=== PATIENT | female | born 1945 | race Caucasian/White ===

== ENCOUNTER 2018-08-05 06:15 | Day surgery (SDC) | payer MEDICARE, OTHER, SELFPAY ==
[2018-08-02 12:35] VITALS: BMI 26.9
[2018-08-05] VITALS (16 sets, daily range): BP systolic 120–148; BP diastolic 69–86; PULSE 67–83; RESP 12–18; TEMP 35.7–36.7; O2SAT 92–99; BMI 25.7
--- NOTE | 2018-08-05 | PATH_ITS ---
[facility] Accession Number: [id number] . 01 Material submitted: . UTERUS AND BILATERAL TUBES AND OVARIES . 02 Diagnosis: Uterus, Bilateral Fallopian Tubes and Ovaries, Laparoscopic Assisted Vaginal Hysterectomy with Bilateral Salpingo-oophorectomy (Weight 64 grams): Cervix with focal parakeratosis, consistent with prolapse. Inflamed endocervix with no diagnostic abnormality; negative for glandular dysplasia and malignancy. Basalis endometrium with cystic atrophy; negative for glandular hyperplasia, cytologic atypia, and malignancy. Myometrium with Monckeberg's calcification of blood vessels and otherwise no diagnostic abnormality. Uterine serosa with nonspecific adhesions. Right ovary with a benign serous cyst (0.5 cm in greatest dimension). Calcified nodule, stated to represent left ovary; no definite left ovarian tissue identified. Right fallopian tube with benign paratubal cysts (1-2 mm in greatest dimension). Fibromuscular tissue with calcifications and fibrous adhesions, stated to represent left fallopian tube; no definite left tubal structure is identified. MRV/08/08/2018 . 02 Electronically signed: . Cynthia Lopez MD, Pathologist NPI- [id number] . 01 Gross description: . Received in formalin, labeled with the patient's name and uterus and bilateral tubes and ovaries, is a piriform uterus with attached right adnexa and detached left adnexa weighing 64 g. The uterus measures 2.5 cm anterior to posterior, 4.7 cm cornu to cornu, and 7.2 cm fundus to cervix. The serosa is partially covered by adhesions. The ectocervix has a 4.5 x 3.7 cm surface diameter and a 0.8 cm slit-like os. The ectocervical mucosa is king-white and wrinkled. The 1.7 cm long, 0.5 cm wide endocervical canal is covered with king-white mucosa. The 4.5 cm long, 0.9 cm wide endometrial cavity is covered with red-brown endometrium measuring 0.1 cm in thickness. No endometrial polyps are present. No subserosal or intramural nodules are identified. The attached right ovary measures 2.5 x 1.7 x 1.2 cm and has a key-king, wrinkled external surface. The cut surface is king-white. The attached right fallopian tube measures 4.5 cm in length by 0.6 cm in diameter and is grossly unremarkable. The detached left ovary measures 1.9 x 1.5 x 1.1 cm and has a nodular, key-king external surface. The cut surface is king-yellow and calcified. The left fallopian tube is attached to the left ovary and measures 3.2 cm in length by 0.6 cm in diameter and is partially disrupted. Service Observer sections are submitted as follows: A1 - anterior cervix; A2 - posterior cervix; A3 - anterior endomyometrium; A4 - posterior endomyometrium; A5 - right ovary; A6 - right fallopian tube cross-sections and fimbriated end; A7 - left ovary; A8 - left fallopian tube and fimbriated end. (VICKI:[id number]) /FRR . 02 Pathologist provided ICD-10: N81.4 . 02 CPT . 907946 Performed at: [facility] [address] [id number] MD Velasquez Baeza MD Phone: [phone] Performed at: [facility] [address] [place] [id number] MD Tevin Vasquez MD Phone: [phone]
[2018-08-05] MEDS: LACTATED RINGERS 1,000 ML 42 ML IV ×2 (06:50→10:26)
--- NOTE | 2018-08-05 07:54 | PM.PREOP ---
Pre-operative Note Interval Note Pre-op Check: Yes History & Physical Reviewed by Physician Changes: No
[2018-08-05] MEDS: CEFAZOLIN 2 GM/100 ML FROZ.PIGGY IV (08:10)
--- NOTE | 2018-08-05 08:46 | SUR.OPER ---
Lithotomy on padded OR bed. Maybee Pad Positioner under torso. Head on pillow, arms padded and tucked at sides. Legs secured in padded yellow fins stirrups.
[2018-08-05] MEDS: BUPIVACAINE 0.25% W/ EPI VIAL 50 ML INJ (08:56)
[2018-08-05] MEDS: BUPIVACAINE 0.5% W/ EPI (PF) VIAL 30 ML INJ (09:02)
[2018-08-05] MEDS: LACTATED RINGERS 1,000 ML 100 ML IV ×3 (10:30→20:49)
--- NOTE | 2018-08-05 11:49 | PC.NURSE ---
Pt to floor following lap assisted vag hysterectomy and repair of bladder suspension. Denies pain at this time apart from a feeling of heaviness in her abdomen. Mild nausea - plan to discuss medication for this. Ordaz draining small amt of clear yellow urine. O2 sats = 90 - 96%. Given IS and instructed on use to maintain O2 levels above 92%. Scds in place. Taking ice chips for now. Does not feel like eating for lunch. Pt is alert and oriented, softly spoken and serious demeanour with appropriate answers to questions.
[2018-08-05] MEDS: ONDANSETRON 4 MG/2 ML INJ IV (12:05)
[2018-08-05] MEDS: ACETAMINOPHEN 325 MG TABLET 650 MG PO ×3 (14:06→21:49)
--- NOTE | 2018-08-05 15:22 | PC.NURSE ---
Pt attempted to sit on chair but felt too unwell at this time to do so. Returned to bed for now. Given tylenol earlier for feeling of pressure in abdomen and now reports feeling improved.Taking fluids without problems. More awake now and interactive with visitors and staff.
--- NOTE | 2018-08-05 16:42 | PC.NURSE ---
Pt resting quietly in bed with eyes closed at beginning of shift. No signs of distress or discomfort.
--- NOTE | 2018-08-05 17:35 | PC.NURSE ---
Pt moves self upright in bed for evening meal. States nausea resolved and able to take soup, nannette kuldeep and toast without difficulty. Admits to vaginal discomfort and lower abdominal discomfort. States unable to tolerate percocet which is ordered and reviewed emar and is too soon for tylenol. Pt requests vicodin and states Dr. Ferguson has informed pt will stop by after clinic hours. Will discuss pain management at that time. Ordaz to gravity with clear, yellow urine. Pt reports most comfortable lying flat in bed without head elevation.
[2018-08-05] MEDS: HYDROCODONE/ACET 5/325 TABLET 1 TAB PO ×2 (18:09→21:48)
[2018-08-05] MEDS: DOCUSATE 250 MG CAPSULE PO (19:57)
--- NOTE | 2018-08-05 20:00 | PC.NURSE ---
Pt awake and resting quietly in bed. Refuses out of bed at this time, but positioned onto left side with pillows to support. Daughter is present and encouraging/supportive. Pt engaged in I.S. use with encouragement.
--- NOTE | 2018-08-05 23:13 | PC.NURSE ---
Pt reports pain well managed (/) with tylenol and vicodin as per emar. Taking oral fluids well. Carlos with 250 cc's clear yellow urine this shift. Anticipates removal of packing and carlos catheter in a.m. as per Dr. Ferguson.
[2018-08-06 00:25] VITALS: BP 136/71; PULSE 72; RESP 14; TEMP 36.4; O2SAT 96
[2018-08-06] MEDS: HYDROCODONE/ACET 5/325 TABLET 1 TAB PO (03:20)
[2018-08-06] MEDS: ACETAMINOPHEN 325 MG TABLET 650 MG PO (03:21)
[2018-08-06 03:26] VITALS: BP 145/77; PULSE 73; RESP 18; TEMP 36.8; O2SAT 96
[2018-08-06 06:28] LABS: Add Manual Diff / Slide Review NO; Basophils Percent Auto 0.3 % (0-2); Eosinophils Percent Auto 1.1 % (2-4); Hematocrit 35.9 % (36-46); Hemoglobin 12.2 g/dL (12.0-16.0); Lymphocytes Percent Auto 15.5 % (25-40); Mean Corpuscular HGB Conc 33.9 % (30-36); Mean Corpuscular Hemoglobin 30.8 PG (26-34); Mean Corpuscular Volume 90.8 fL (80-100); Monocytes Percent Auto 7.9 % (3-14); Neutrophils Absolute Auto 7600 /uL (3000-5900); Neutrophils Percent Auto 75.2 % (50-75); Platelet Count 200 X10^3/uL (150-400); Red Blood Cell Count 3.96 X10^6/uL (4.0-5.2); Red Cell Distribution Width 13.7 % (11.6-14.8); White Blood Cell Count 10.2 X10^3/uL (4.5-11.0)
[2018-08-06] MEDS: LACTATED RINGERS 1,000 ML 100 ML IV (06:57)
[2018-08-06 07:00] VITALS: BP 149/77; PULSE 70; RESP 16; TEMP 37.3; O2SAT 96
[2018-08-06] MEDS: DOCUSATE 250 MG CAPSULE PO (08:49)
--- NOTE | 2018-08-06 11:12 | PC.NURSE ---
Pt has showered and is dressed and ready for discharge. Had 100cc void and it was clear and light yellow. Pt's daughter is here to drive her. Pt denies pain. Reviewed discharge orders with Pt and notified Pt that she will be called by [facility] for her follow up appointment. Pt and family member deny further questions. Reminded Pt to drink lots of fluids and attempt to void every 2 hours to empty bladder. Pt out via w/c by [employer] with family and all belongings.
--- NOTE | 2018-08-06 12:51 | CM.DANOTE ---
Patient is a 73 year old female who was admitted on 08/05/18 for Surgical Procedure. Pt has M[employer] and [employer] for insurance and her PCP is Dr. Andrea. EMR was reviewed. Per MD, pt is medically stable to d/c home today with no identified barriers to discharge. Per RN, pt was independent in room and no concerns noted at this time. SW went by pt's room to complete bedside assessment and family and staff were taking the pt downstairs to family's transport and pt stated she had no concerns with discharging home today with family assist. Plan: Patient discharged home today via family POV and no SW needs at this time. JOSAFAT Gant Discharge Planning/Care Management CM Discharge Assessment Start: 08/06/18 12:50 Freq: Status: Active Protocol: Document 08/06/18 12:50 BF (Rec: 08/06/18 12:51 BF [id number]) Discharge Planning Assessment Assigned Other Sales Support Worker ICT CUSTOMER SUPPORT OFFICER Advance Directives? Yes: Dated 01/07/16 Advance Directives on File Yes History Provided By Patient Medical Record Has Patient been admitted in last 30 No days? Prior Living Arrangements House Household Members none Type of transporation used prior to Drives own vehicle admit Independent with ADL's Yes Is patient alert and oriented? Yes Needs Assistance With Home Chores / Shopping Barriers to Discharge No Discharge Plan Home Transportation Arrangement Family to provide transport home Referrals Initiated None needed Whiteboard Updated in Patient Room with No name and ext. # of Other Sales Support Worker Review Status In Process Please Provide Date Initial DC 08/06/18 Assessment Was Performed Next Review Type Continued Stay Review
--- NOTE | 2018-08-08 05:38 | PM.GYNOP.1 ---
Operative Date/Time/Diagnoses Date of procedure: 08/05/18 Time of procedure: 11:08 Pre-op diagnosis: Uterine prolapse Cystocele Rectocele Post-op diagnosis: same Procedure: Procedures Operation Date: 08/05/18 07:45 Actual Procedures Side Surgeon p Laparoscopic Assisted Vag Hysterectomy w/Bilat Salpingo-Oophorectomy Ana Laura Ferguson MD s Colporrhaphy Anterior/Posterior Colporrhaphy Ana Laura Ferguson MD Indications: Symptomatic uterine prolapse, cystocele, and rectocele Surgeon: Ana Laura Ferguson Multigrapher: Sameer Zuluaga Anesthesia Type: General Operative Notes Findings: Third-degree uterine prolapse Third-degree cystocele and rectocele Pelvic adhesions Closure Type: primary Specimen(s): left tube & ovary, right tube & ovary and uterus Applied: catheter Estimated blood loss (mL): 75 Blood products transfused: none Procedure in detail: The patient was taken to the operating room where she was placed in the dorsal supine position. After adequate general endotracheal anesthesia was achieved, she was placed in the dorsal lithotomy position, and prepped and draped in the usual sterile fashion. A bivalve speculum was placed into the vagina, and a single-tooth tenaculum was placed on the anterior lip of the cervix. The cervical os was sequentially dilated until the ZUMI uterine manipulator could pass easily into the endometrial cavity. The single-tooth tenaculum was removed from the anterior lip of the cervix, and the bivalve speculum was removed from the vagina. Attention was then turned to the abdomen where 6 mL of half percent Marcaine with epinephrine were injected in the umbilical fold. A 5 mm incision was made. The varies needle was placed into the peritoneal cavity, and its placement confirmed by aspiration and drop test. The abdominal cavity was insufflated with 4 L of CO2. The varies needle was removed, and a 5 mm trocar was placed without difficulty. Initial inspection of the pelvis revealed the findings noted above. 2 other incisions were made midway between the pubic symphysis and umbilicus 4 cm lateral to the midline. These were 5 mm incisions. Two 5 mm trochars were placed under direct visualization. The right tube and ovary were grasped with an atraumatic grasper. The infundibulopelvic ligament on the right side was cauterized and cut with plasma kinetic. The round ligament and broad ligament were cauterized and cut. This was continued to the level of the uterine arteries. This was repeated on the patient's left side. The insurance are removed from the abdomen. Attention was then turned to the vagina where the ZUMI uterine manipulator was removed from the uterus. The cervix was grasped with a 4 tooth tenaculum. 10 mL of quarter percent Marcaine with epinephrine were injected circumferentially around the cervix. The cervix was circumscribed. The bladder and rectum were dissected off the lower uterine segment and cervix with an open moistened Ray-Sonia. The peritoneum was entered sharply with the Metzenbaum scissors anteriorly and a [place] placed. The peritoneum was entered posteriorly with the Metzenbaum scissors and the long weighted speculum was placed into the posterior cul-de-sac. The uterosacral cardinal ligament complexes were clamped, transected, and suture ligated with 0 Vicryl. These were attached to hemostats. The uterine arteries were clamped, transected, and suture ligated with 0 Vicryl. The uterus was handed off for specimen with the tubes and ovaries. The peritoneum was closed with a pursestring suture with 2-0 Vicryl. The vaginal cuff was closed with 0 Vicryl with a series of simple interrupted sutures. The tagged sutures were cut. 2 Allis clamps were placed at the apex of the cystocele. 6 mL of half percent Marcaine with epinephrine were injected and an incision was made with a #10 blade between the 2 Allis clamps. Wide Allis clamps were placed on the midline of the cystocele approximately 5. The mucosa was undermined using the Metzenbaum scissors and the mucosa incised in the midline moving the wide Allis clamps to the edges of the mucosa. The mucosa was dissected off the underlying fascia using an open moistened Ray-Sonia and a #10 blade. The fascia was reapproximated with 0 Vicryl with a series of horizontal mattress sutures. The excess vaginal mucosa was excised. The mucosa was closed using simple interrupted sutures with 2-0 Vicryl including the underlying fascia to close the space. The weighted speculum was removed from the vagina. Allis clamps were placed at the mucocutaneous junction at the introitus. 6 mL of half percent Marcaine with epinephrine were injected. An incision was made with a #10 blade between the 2 Allis clamps, and a triangular piece of skin and underlying subcutaneous tissue was removed. Allis clamps were placed in the midline of the rectocele. 10 mL of half percent Marcaine with epinephrine were injected submucosally. The mucosa was undermined using the Metzenbaum scissors and the mucosa incised in the midline, moving the wide Allis clamps to the mucosal edges. The underlying fascia was dissected off of th mucosa using an open moistened Ray-Sonia and a #10 blade. The fascia was reapproximated using 0 Vicryl with a series of horizontal mattress sutures. The excess vaginal mucosa was excised. The mucosa was closed using a series of simple interrupted sutures with 2-0 Vicryl including the underlying fascia to close the space. On the perineum 0 Vicryl was used to reapproximate the levator muscle. The subcutaneous layer was closed with 2-0 Vicryl. The skin was closed with 3-0 chromic in a subcuticular fashion. Hemostasis was achieved. A Betadine moistened vaginal pack was placed into the vagina. A rectal exam was done and there were no sutures palpable in the rectum. The urine was clear. Sponge, lap, and instrument counts were correct x-2. The patient tolerated the procedure well, was taken to PACU in stable condition. Complications: none Post-operative Condition: stable Disposition: PACU Plan for aftercare: Acute care after recovery
--- NOTE | 2018-08-08 05:42 | PM.DS.1 ---
History of Present Illness Date Patient Seen: 08/06/18 Time Patient Seen: 08:30 Chief complaint: *OPB* [facility] BSO AND A&P [id number] Narrative: Patient is a 73-year-old postop day # 1 status post LAVH/BSO/anterior and posterior repair. Catheter was removed at 6 o'clock this morning. Pain is well controlled. Discharge Providers Discharge provider: Ana Laura Ferguson MD Summary Discharge Diagnosis: Uterine prolapse, cystocele, rectocele Status post LAVH/BSO/anterior and posterior repair Hospital Course: The patient presented on 08/05/2018 for scheduled LAVH/BSO/anterior and posterior repair. She underwent these procedures without difficulty. The catheter was removed on postop day # 1. She was able to void with low postvoid residuals. Her pain was well controlled. She was able to ambulate and tolerated a diet. Status at Discharge Functional status at discharge: independent ambulation Overall status at discharge: patient is progressing back to baseline Time Spent with Patient Less than 30 minutes Exam Vital Signs (past 8 hours): Oxygen Delivery Method Room Air Oxygen Flow Rate 0.5 Narrative Exam Narrative: Generally: A well-developed, well-nourished elderly female, no acute distress Lungs: Clear to auscultation bilaterally Cardiovascular: Regular rate and rhythm Abdomen: Soft with good bowel sounds Incisions: Clean dry and intact with op site Extremities: Negative Homans Objective Labs Result Diagrams: 08/06/18 06:14 Discharge Plan Discharge Plan Patient Disposition: Home Discharge comment: Call with fever, chills, redness or drainage around incisions or bleeding vaginally more than spotty to light No heavy lifting Ibuprofen/Tylenol for pain Stool softners for 6 weeks Discharge Med Rec/Prescriptions Prescriptions: No Action hydrochlorothiazide 12.5 MG capsule 12.5 mg PO QDAY Qty: 0 RF: 0 gabapentin 100 MG capsule 100 mg PO PRN PRN (Reason: Restless Leg(S)) Qty: 0 RF: 0 cholecalciferol (vitamin D3) [Vitamin D3] 2,000 UNIT capsule 2,000 unit PO DAILY Qty: 0 RF: 0 estradiol [Vagifem] 10 mcg tablet 10 mcg VAG .COMPLEX Qty: 30 RF: 6 atorvastatin 20 mg tablet 20 mg PO DAILY RF: 0 Follow up/Referrals: Ana Laura Ferguson MD [Physician] - 2 Weeks Discharge Orders: Discharge (Order); Ordered 08/06/18 Ordered By: Ana Laura Ferguson Provider Discharge Instructions Diet: Diet as Tolerated Activity: No heavy lifting Skin/Wound/Dressing Care Report to your healthcare provider any signs of infection, such as:: chills, fever, increased pain and unusual drainage Dressing: Remove outer plastic dressings and guaze after first shower Visit Report/Discharge Packet Instructions: DI for Hysterectomy Stand Alone Forms: Surgery Discharge Discharge Data Attending Provider: Ana Laura Ferguson Discharges patient from system. Discharge Date/Time: 08/06/18 11:15 Quality VTE Deep Vein Thrombosis/Pulmonary Embolism Present on Admission: No
--- NOTE | 2018-08-08 05:45 | P.DS_ITS ---
History of Present Illness Date Patient Seen: 08/06/18 Time Patient Seen: 08:30 Chief complaint: *OPB* [facility] BSO AND A&P [id number] Narrative: Patient is a 73-year-old postop day # 1 status post LAVH/BSO/ anterior and posterior repair. Catheter was removed at 6 o'clock this morning. Pain is well controlled. Discharge Providers Discharge provider: Ana Laura Ferguson MD Summary Discharge Diagnosis: Uterine prolapse, cystocele, rectocele Status post LAVH/BSO/anterior and posterior repair Hospital Course: The patient presented on 08/05/2018 for scheduled LAVH/BSO/ anterior and posterior repair. She underwent these procedures without difficulty. The catheter was removed on postop day # 1. She was able to void with low postvoid residuals. Her pain was well controlled. She was able to ambulate and tolerated a diet. Status at Discharge Functional status at discharge: independent ambulation Overall status at discharge: patient is progressing back to baseline Time Spent with Patient Less than 30 minutes Exam Vital Signs (past 8 hours): Oxygen Delivery Method Room Air Oxygen Flow Rate 0.5 Narrative Exam Narrative: Generally: A well-developed, well-nourished elderly female, no acute distress Lungs: Clear to auscultation bilaterally Cardiovascular: Regular rate and rhythm Abdomen: Soft with good bowel sounds Incisions: Clean dry and intact with op site Extremities: Negative Homans Objective Labs Result Diagrams: 08/06/18 06:14 Discharge Plan Discharge Plan Patient Disposition: Home Discharge comment: Call with fever, chills, redness or drainage around incisions or bleeding vaginally more than spotty to light No heavy lifting Ibuprofen/Tylenol for pain Stool softners for 6 weeks Discharge Med Rec/Prescriptions Prescriptions: No Action hydrochlorothiazide 12.5 MG capsule 12.5 mg PO QDAY Qty: 0 RF: 0 gabapentin 100 MG capsule 100 mg PO PRN PRN (Reason: Restless Leg(S)) Qty: 0 RF: 0 cholecalciferol (vitamin D3) [Vitamin D3] 2,000 UNIT capsule 2,000 unit PO DAILY Qty: 0 RF: 0 estradiol [Vagifem] 10 mcg tablet 10 mcg VAG .COMPLEX Qty: 30 RF: 6 atorvastatin 20 mg tablet 20 mg PO DAILY RF: 0 Follow up/Referrals: Ana Laura Ferguson MD [Physician] - 2 Weeks Discharge Orders: Discharge (Order); Ordered 08/06/18 Ordered By: Ana Laura Ferguson Provider Discharge Instructions Diet: Diet as Tolerated Activity: No heavy lifting Skin/Wound/Dressing Care Report to your healthcare provider any signs of infection, such as:: chills, fever, increased pain and unusual drainage Dressing: Remove outer plastic dressings and guaze after first shower Visit Report/Discharge Packet Instructions: DI for Hysterectomy Stand Alone Forms: Surgery Discharge Discharge Data Attending Provider: Ana Laura Ferguson Discharges patient from system. Discharge Date/Time: 08/06/18 11:15 Quality VTE Deep Vein Thrombosis/Pulmonary Embolism Present on Admission: No
== END 2018-08-06 11:15 | disposition home or self-care (01) ==
LOC: OR 06:20 → AC 06:32
PROVIDERS: Visit Provider Obstetrics & Gynecology
PROC: 0UT9FZZ Resection of Uterus, Via Natural or Artificial Opening With Percutaneous Endoscopic Assistance (ICD-10-PCS; CPT 58552; principal; 2018-08-05 07:45)
PROC: (CPT 58552; 2018-08-05 07:45)
DX: N81.3 Complete uterovaginal prolapse (principal); N81.6 Rectocele; I10 Essential (primary) hypertension
CPT/HCPCS: 58552; 57260; 36415; 85025; 88305; J0690; J1100; J2250; J2405; J2704; J3010

== ENCOUNTER → 2019-04-28 15:03 | Outpatient (CLI) | payer MEDICARE, OTHER, SELFPAY ==
[2018-08-05 11:29] VITALS: BMI 25.7
--- NOTE | 2019-04-28 | DI.RAD.S_ITS ---
PROCEDURE: XR KNEE RT 3V INDICATIONS: Pain in right knee TECHNIQUE: 3 views of the knee were acquired. COMPARISON: None. FINDINGS: Bones: No fractures or dislocations but there is a lucency at the lateral border of the patella anterolaterally, measuring up to 8 x 9 mm, extending to the superficial cortical surface seen on one view only (patellar sunrise view) potentially representing a focus of infection or neoplasm. No suspicious bony lesions. Soft tissues: No joint effusion. No suspicious soft tissue calcifications. IMPRESSION: No effusion found, no trauma seen but there is a lucency as discussed above measuring up to 8 x 9 mm involving the anterolateral patellar border, potentially evidence of infection or neoplasm. No comparison is available for review in this area. Please correlate for whether any trauma has occurred recently in that region. Depending on the clinical status followup by MR scanning with contrast may become necessary. Dictated by: Liborio Bass M.D. on 04/28/2019 at 15:45 Approved by: Liborio Bass M.D. on 04/28/2019 at 15:47
== END ==
PROVIDERS: PCP Internal Medicine; Visit Provider Internal Medicine
DX: M25.561 Pain in right knee (principal)
CPT/HCPCS: 73562

== ENCOUNTER → 2019-05-12 09:25 | Outpatient (CLI) | payer MEDICARE, OTHER, SELFPAY ==
[2018-08-05 11:29] VITALS: BMI 25.7
--- NOTE | 2019-05-12 | DI.MRI.S_ITS ---
PROCEDURE: MR KNEE RT WO/W CON INDICATIONS: RIGHT KNEE PAIN TECHNIQUE: Noncontrast sagittal PD fast spin echo and T2 fast spin echo with fat saturation, sagittal 3-D FLASH with fat saturation; coronal T1 spin echo and PD fast spin echo with fat saturation, and axial T1 spin echo and PD fast spin echo with fat saturation through the knee. Post-contrast axial, coronal, and sagittal T1 spin echo with fat saturation through the knee. COMPARISON: [facility], CR, XR KNEE RT 3V, 04/28/2019, 15:18. FINDINGS: Image quality: Excellent. Menisci: The medial and lateral menisci demonstrate normal morphology and internal signal. The meniscal root ligaments appear intact. Cruciate ligaments: The anterior and posterior cruciate ligaments appear intact. Medial structures: The medial collateral ligament appears intact. The posterior oblique ligament, semimembranosus tendon insertions, and oblique popliteal liagment, and meniscocapsular junction appear intact. Visualized portions of the pes anserinus tendons appear normal. No abnormal bursal fluid. Lateral structures: The lateral collateral ligament, long and short heads of the biceps femoris tendon appear intact. The popliteus tendon appears normal; the popliteofibular ligament appears intact. The posterosuperior and anteroinferior popliteomeniscal fascicles appear intact. The arcuate and fabellofibular ligaments appear intact, around the lateral inferior geniculate artery. Iliotibial band appears normal. Anterior structures: The quadriceps and patellar tendons appear intact. Patellar alignment is normal. No femoral trochlear dysplasia or ventral trochlear prominence. No edema in the infrapatellar fat pad. There is nonspecific prepatellar soft tissue swelling. Bones and cartilage: There is a longitudinal oriented the near hypointensity with associated bone marrow edema and enhancement in inferior aspect of patella along the coronal plane, consistent with a nondisplaced fracture. No masses is identified to correlate with the radiolucency seen on x-ray. The cartilage of the medial and lateral femorotibial compartments, as well as the patellofemoral compartment, appears normal in thickness. There is a 9 mm nodule in the posterior medial femoral condyle, demonstrating hypointense T1 and hyperintense signal with internal septation, most likely a cyst. Joint space: There is small knee joint effusion. A small Gray's cyst is present. Normal appearing synovial plicae are incidentally noted. No suspicious soft tissue enhancement. IMPRESSION: 1. Nondisplaced fracture of the patella with associated marrow edema and enhancement. Although the orientation of the fracture is unusual, no mass lesion is present. Recommend cartilage with clinical history of trauma. Followup radiograph of the knee is recommended. 2. Small knee joint effusion. 3. Small Gray cyst. 4. Nonspecific prepatellar soft tissue swelling, likely secondary to contusion. 5. There is a 9 mm cyst in the posterior aspect of the medial femoral condyle. Dictated by: Savana Mclain M.D. on 05/12/2019 at 10:37 Approved by: Savana Mclain M.D. on 05/12/2019 at 18:46
== END ==
PROVIDERS: PCP Internal Medicine; Visit Provider Internal Medicine
DX: M25.561 Pain in right knee (principal); S82.024A Nondisplaced longitudinal fracture of right patella, initial encounter for closed fracture; M25.461 Effusion, right knee; M71.21 Synovial cyst of popliteal space [Baker], right knee; M79.89 Other specified soft tissue disorders; M85.661 Other cyst of bone, right lower leg
CPT/HCPCS: 73723; A9579

== ENCOUNTER → 2020-07-11 09:31 | Outpatient (CLI) | payer MEDICARE, OTHER, SELFPAY ==
[2018-08-05 11:29] VITALS: BMI 25.7
--- NOTE | 2020-07-11 09:36 | DI.RAD.S_ITS ---
PROCEDURE: XR CHEST 2V INDICATIONS: Short of breath TECHNIQUE: 2 views of the chest were acquired. COMPARISON: None. FINDINGS: Surgical changes and devices: None. Lungs and pleura: Lungs are clear. No pleural effusions or pneumothorax. Mediastinum: The cardiac contours are within normal limits. The aorta demonstrates calcification and tortuosity. Bones and chest wall: Age-appropriate bony degenerative changes are seen. Mild dextroconvex scoliotic curvature is seen. No suspicious bony abnormalities. Soft tissues appear unremarkable. IMPRESSION: No acute cardiopulmonary process is seen. If there is clinical concern for a developing pulmonary process, a short-term followup chest series (with PA and lateral views, performed in deep inspiration) is suggested for further evaluation. Dictated by: William Elizondo M.D. on 07/11/2020 at 11:06 Approved by: William Elizondo M.D. on 07/11/2020 at 11:07
[2020-07-11 16:50] LABS: Add Manual Diff / Slide Review NO; Basophils Absolute Auto 0 /uL (0-100); Basophils Percent Auto 0.7 % (0-2); Eosinophils Absolute Auto 200 /uL (0-450); Eosinophils Percent Auto 3.3 % (2-4); Hematocrit 37.2 % (36-46); Hemoglobin 12.4 g/dL (12.0-16.0); Lymphocytes Absolute Auto 1300 /uL (1100-4500); Lymphocytes Percent Auto 23.4 % (25-40); Mean Corpuscular HGB Conc 33.3 % (30-36); Mean Corpuscular Hemoglobin 29.9 PG (26-34); Mean Corpuscular Volume 89.6 fL (80-100); Monocytes Absolute Auto 400 /uL (0-900); Monocytes Percent Auto 7.6 % (3-14); Neutrophils Absolute Auto 3500 /uL (1500-7000); Platelet Count 272 X10^3/uL (150-400); Red Blood Cell Count 4.16 X10^6/uL (4.0-5.2); Red Cell Distribution Width 13.6 % (11.6-14.8); White Blood Cell Count 5.4 X10^3/uL (4.5-11.0)
[2020-07-11 17:44] LABS: Vitamin B12 626 pg/mL (239-931)
== END ==
PROVIDERS: PCP Internal Medicine; Referring Provider Internal Medicine; Visit Provider Internal Medicine
DX: R06.02 Shortness of breath (principal)
CPT/HCPCS: 71046; 82607; 85025

== ENCOUNTER → 2020-07-12 06:37 | Outpatient (CLI) | payer MEDICARE, OTHER, SELFPAY ==
[2018-08-05 11:29] VITALS: BMI 25.7
--- NOTE | 2020-07-12 | DI.ECHO.S_ITS ---
[facility] +---------+ : : [address] : [place] [address] : : : : [id number] : : : : Phone: [phone] : [phone]---------+ Echocardiogram Report + + :Name: OCHOA VICK Study Date: 07/12/2020 Height: 64 in : :[facility] Weight: 151 lb : : Gender: Female BSA: 1.7 m2 : :: 1945 Age: 75 yrs BP: 133/75 mmHg: :Reason For Study: sHORTNESS OF BREATH : : Performed By: Bernard Padilla : :Referring: YOANDY MARSHALL : + + Interpretation Summary Left ventricular size is at the upper limits of normal. Left ventricular systolic function is severely reduced. Left ventricular ejection fraction is estimated to be 25%. There is severe hypokinesis to akinesis along the inferoseptal, inferior, and most of lateral segments. The rest of LV is mild to moderately hypokinetic. Diastolic function could not be accurately assessed due to confounding valvular disease. The right ventricle is normal size. Right ventricular systolic function is borderline reduced. The right ventricular systolic pressure is estimated to be at least 44 mmHg based on an estimated right atrial pressure of 3 mm Hg. The left atrium is severely dilated. Right atrial size is normal. There is severe mitral regurgitation. MR is most likely due to ischemic papillary dysfunction. There is no other significant valvular heart disease. The aortic root is normal size. There is a trivial pericardial effusion noted. There are no echocardiographic indications of cardiac tamponade. Procedure: A two-dimensional transthoracic echocardiogram with color flow and Doppler was performed. The study quality was technically good. There is no prior echocardiogram noted for this patient. The patient was in normal sinus rhythm during the exam. The patient was tachycardic with a heart rate of 99- 105 beats per minute. Left Ventricle: There is normal left ventricular wall thickness. Left ventricular size is at the upper limits of normal. Left ventricular systolic function is severely reduced. Left ventricular ejection fraction is estimated to be 25%. There is severe hypokinesis to akinesis along the inferoseptal, inferior, and most of lateral segments. The rest of LV is mild to moderately hypokinetic. Diastolic function could not be accurately assessed due to confounding valvular disease. Right Ventricle: The right ventricle is normal size. Right ventricular systolic function is borderline reduced. Atria: The left atrium is severely dilated. Right atrial size is normal. The interatrial septum is intact with no evidence for an atrial septal defect. Mitral Valve: The mitral valve is normal in structure but abnormal in function. There is severe mitral regurgitation. Aortic Valve: The aortic valve is trileaflet. The aortic valve opens well. There is trace aortic regurgitation. Tricuspid Valve: The tricuspid valve is normal in structure and function. There is mild tricuspid regurgitation. The right ventricular systolic pressure is estimated to be at least 44 mmHg based on an estimated right atrial pressure of 3 mm Hg. Pulmonic Valve: The pulmonic valve is normal in structure and function. There is trace pulmonic regurgitation. There is no other significant valvular heart disease. Great Vessels: The aortic root is normal size. The dimensions of the ascending aorta are normal. The pulmonary artery is normal size. The IVC is of normal diameter and collapses greater than 50% with a sniff. This suggests a low right atrial pressure of 3 mm Hg. Pericardium/ Pleura There is a trivial pericardial effusion noted. There are no echocardiographic indications of cardiac tamponade. There is no pleural effusion. MMode/2D Measurements & Calculations LVIDd: 5.7 cm LVOT diam: 2.0 cm LVIDs: 4.7 cm Ao root diam: 2.6 cm FS: 16.9 % asc Aorta Diam: 3.0 cm EPSS: 1.9 cm IVSd: 0.77 cm LVPWd: 0.70 cm LV theodore. diameter/BSA (cm/m^2): 3.3 LV sys. diameter/BSA (cm/m^2): 2.7 LA dimension: 4.1 cm RA long axis: 5.5 cm LA A2 area: 27.9 cm2 RA area: 18.6 cm2 LA A4 area: 22.4 cm2 RA vol: 53.8 ml LA length (vol): 6.1 cm RA : 31.0 ml/m2 LA vol: 87.5 ml IVC diam: 2.0 cm LA vol index: 50.4 ml/m2 TAPSE: 2.1 cm Doppler Measurements & Calculations Ao V2 max: 124.6 cm/sec LVOT Max Joseph: 83.1 cm/sec Ao V2 mean: 97.4 cm/sec LV V1 max P.8 mmHg Ao max P.2 mmHg LV V1 VTI: 11.0 cm Ao mean P.0 mmHg GEORGETTE(I,D): 2.0 cm2 Ao V2 VTI: 18.1 cm GEORGETTE(V,D): 2.2 cm2 sev ratio: 0.61 GEORGETTE indexed to BSA (cm^2/m^2): 1.1 MV E max joseph: 105.3 cm/sec TR max joseph: 321.7 cm/sec MV A max joseph: 0.49 cm/sec TR max P.4 mmHg MV E/A: 215.4 PA V2 max: 84.7 cm/sec Med Peak E' Joseph: 9.4 cm/sec PA V2 mean: 51.1 cm/sec E/E' med: 11.2 PA mean P.2 mmHg Lat Peak E' Joseph: 10.5 cm/sec PA pr(Accel): 54.6 mmHg E/E' lat: 10.0 E/e' average: 10.6 MV dec time: 0.09 sec MR ERO: 0.16 cm2 MR VTI: 144.5 cm MR PISA: 2.0 cm2 MR flow rate: 72.1 cm3/sec MR PISA radius: 0.56 cm SV(LVOT): 35.5 ml Reading Physician:09:23 AM
== END ==
PROVIDERS: PCP Internal Medicine; Referring Provider Internal Medicine; Visit Provider Internal Medicine
DX: I08.1 Rheumatic disorders of both mitral and tricuspid valves (principal); R06.02 Shortness of breath
CPT/HCPCS: 93306

== ENCOUNTER → 2023-01-05 07:53 | Outpatient (CLI) | payer MEDICARE, OTHER, SELFPAY ==
[2018-08-05 11:29] VITALS: BMI 25.7
--- NOTE | 2023-01-05 | DI.ECHO.S_ITS ---
[place]---------+ [facility] +---------+ : : [address] : [address] : : : : [id number] : : : : Phone: [phone] +---------+ Echocardiogram Report + + :Name: OCHOA VICK Study Date: 01/05/2023 Height: 64 in : :[facility] ReadingLocation: Weight: 136 lb : : Gender: Female BSA: 1.7 m2 : :: 1945 Age: 77 yrs BP: 107/70 mmHg: :Reason For Study: SYTOLIC HEART FAILURE : :Ordering Physician: ELENITA, : :JOSE MIGUEL Performed By: Gaby Mcknight : :Referring: JOSE MIGUEL KWONG : + + Interpretation Summary 1) Normal left ventricular thickness and size with moderately to severely reduced systolic function (EF 30-35%). 2) Normal right ventricular size and function. There is a pacemaker lead in the right ventricle. 3) No significant valvular stenosis or regurgitation. 4) The right ventricular systolic pressure is estimated to be at least 37 mmHg based on an estimated right atrial pressure of 3 mm Hg. 5) No prior Echo available for comparison. Procedure: The study quality was technically limited. Images were not obtained from all of the standard acoustic windows due to the limited scope of the study. The study quality was technically adequate. There is no prior echocardiogram noted for this patient. The patient was in sinus rhythm with heart rates between 61-67 bpm during the exam. Left Ventricle: The left ventricle is normal in size and wall thickness. The ejection fraction is estimated to be 30-35%. There is moderate to severe global hypokinesis of the left ventricle. Right Ventricle: The right ventricle is normal in size and function. There is a pacemaker lead in the right ventricle. Atria: The left atrial size is normal. The right atrium is normal in size. Mitral Valve: The mitral valve is normal in structure and function. There is mild mitral regurgitation. Aortic Valve: The aortic valve is normal in structure and function. No aortic regurgitation is present. Tricuspid Valve: The tricuspid valve is normal in structure and function. There is mild tricuspid regurgitation. The right ventricular systolic pressure is estimated to be at least 37 mmHg based on an estimated right atrial pressure of 3 mm Hg. Great Vessels: The IVC is of normal diameter and collapses greater than 50% with a sniff. This suggests a low right atrial pressure of 3 mm Hg. Pericardium/ Pleura There is no pericardial effusion. There is no pleural effusion. MMode/2D Measurements & Calculations LVIDd: 4.6 cm LA A2 area: 18.4 cm2 LVIDs: 3.8 cm LA A4 area: 14.8 cm2 FS: 16.2 % LA length (vol): 4.6 cm EPSS: 1.2 cm LA vol: 50.6 ml IVSd: 0.79 cm LA vol index: 30.5 ml/m2 LVPWd: 0.71 cm LV theodore. diameter/BSA (cm/m^2): 2.8 LV sys. diameter/BSA (cm/m^2): 2.3 RA long axis: 4.6 cm RVD1 (basal): 3.1 cm RA area: 15.2 cm2 RVD2 (mid): 2.5 cm RA vol: 42.6 ml TAPSE: 2.1 cm RA : 25.6 ml/m2 IVC diam: 1.7 cm Doppler Measurements & Calculations MV E max joseph: 44.2 cm/sec TR max joseph: 291.7 cm/sec MV A max joseph: 80.1 cm/sec TR max P.0 mmHg MV E/A: 0.55 Med Peak E' Joseph: 5.5 cm/sec E/E' med: 8.1 Lat Peak E' Joseph: 6.4 cm/sec E/E' lat: 6.9 E/e' average: 7.5 MV dec time: 0.24 sec Reading Physician:11:16 AM
== END ==
PROVIDERS: Referring Provider Internal Medicine Cardiovascular Disease; Visit Provider Internal Medicine Cardiovascular Disease
DX: I50.22 Chronic systolic (congestive) heart failure (principal); I08.1 Rheumatic disorders of both mitral and tricuspid valves
CPT/HCPCS: 93307

== ENCOUNTER → 2025-01-24 11:37 | Outpatient (CLI) | payer MEDICARE, OTHER, SELFPAY ==
[2018-08-05 11:29] VITALS: BMI 25.7
--- NOTE | 2025-01-24 11:38 | DI.ECHO.S_ITS ---
[facility] +---------+ [facility] : : [address] : : [place] : : [id number] : : Phone: [phone] Echocardiogram Report + + :Name: OCHOA VICK Study Date: 01/24/2025 Height: 63 in : :[facility] ReadingLocation: Weight: 137 lb : : Gender: Female BSA: 1.6 m2 : :: 1945 Age: 80 yrs BP: 136/75 mmHg: :Reason For Study: HEART FAILURE : :Ordering Physician: ELENITA, : :JOSE MIGUEL Performed By: Gaby Mcknight : :Referring: JOSE MIGUEL KWONG : + + Interpretation Summary The left ventricle is normal in size and wall thickness. The ejection fraction is estimated to be 40-45%. Previous LVEF 30 to 35%. There is improvement in LV function as well as overall global hypokinesis. Septum is still hypokinetic. The right ventricle is normal in size and function. There is a pacemaker lead in the right ventricle. There is mild mitral regurgitation. There is mild aortic regurgitation. There is moderate tricuspid regurgitation. Previous mild TR. Compared to the prior echo exam, there has been an increase in TR severity. The right ventricular systolic pressure is estimated to be at least 29 mmHg based on an estimated right atrial pressure of 3 mm Hg. Previous 37 mmHg. Procedure: A two-dimensional transthoracic echocardiogram with color flow and Doppler was performed. The study quality was technically adequate. Comparison is made with the echocardiogram of 01/05/2023. The patient has a paced rhythm. The heart rate ranged between 60 bpm during the study. Left Ventricle: The left ventricle is normal in size and wall thickness. There is no thrombus. A false chord is noted (normal variant). The ejection fraction is estimated to be 40-45%. Septal motion is consistent with conduction abnormality. There is septal wall hypokinesis. Diastolic parameters suggest a relaxation abnormality of the left ventricle, consistent with probable normal filling pressures. Right Ventricle: There is a pacemaker lead in the right ventricle. The right ventricle is normal in size and function. Atria: The left atrial size is normal. There has been no significant change since the previous study. Right atrial size is normal. There is no Doppler evidence for an interatrial shunt. The interatrial septum is thin and hypermobile. Mitral Valve: The mitral valve leaflets appear to open well. The mitral valve leaflets are mildly calcified. There is mild mitral regurgitation. Aortic Valve: The aortic valve is trileaflet. The aortic valve opens well. The aortic valve is slightly calcified. There is no aortic valve stenosis. There is mild aortic regurgitation. Tricuspid Valve: The tricuspid valve is normal. There is moderate tricuspid regurgitation. The right ventricular systolic pressure is estimated to be at least 29 mmHg based on an estimated right atrial pressure of 3 mm Hg. Compared to the prior echo exam, there has been an increase in TR severity. Pulmonic Valve: The pulmonic valve leaflets are thin and pliable; valve motion is normal. There is mild pulmonic regurgitation. Great Vessels: The aortic root is normal size. The dimensions of the ascending aorta are normal. The IVC is of normal diameter and collapses greater than 50% with a sniff. This suggests a low right atrial pressure of 3 mm Hg. Pericardium/ Pleura There is no pericardial effusion. There is no pleural effusion. MMode/2D Measurements & Calculations LVIDd: 4.7 cm LVOT diam: 2.0 cm LVIDs: 3.8 cm Ao root diam: 2.4 cm FS: 19.2 % asc Aorta Diam: 2.9 cm EPSS: 0.65 cm Ao Arch Diam (Prox Trans): 2.4 cm IVSd: 0.74 cm LVPWd: 0.69 cm LV theodore. diameter/BSA (cm/m^2): 2.9 LV sys. diameter/BSA (cm/m^2): 2.3 LA A2 area: 17.5 cm2 RA long axis: 5.1 cm LA A4 area: 14.4 cm2 RA area: 14.6 cm2 LA length (vol): 4.6 cm RA vol: 35.5 ml LA vol: 46.6 ml RA : 21.5 ml/m2 LA vol index: 28.3 ml/m2 IVC diam: 1.6 cm RVD1 (basal): 3.3 cm RVD2 (mid): 2.5 cm TAPSE: 2.2 cm Doppler Measurements & Calculations Ao V2 max: 158.2 cm/sec LVOT Max Joseph: 94.2 cm/sec Ao V2 mean: 113.2 cm/sec LV V1 max P.5 mmHg Ao max P.0 mmHg LV V1 VTI: 19.3 cm Ao mean P.6 mmHg GEORGETTE(I,D): 2.0 cm2 Ao V2 VTI: 32.3 cm GEORGETTE(V,D): 1.9 cm2 sev ratio: 0.60 GEORGETTE indexed to BSA (cm^2/m^2): 1.2 AI P1/2t: 731.9 msec AI dec slope: 172.3 cm/sec2 MV E max joseph: 47.9 cm/sec TR max joseph: 258.5 cm/sec MV A max joseph: 84.8 cm/sec TR max P.7 mmHg MV E/A: 0.56 PA V2 max: 136.3 cm/sec Med Peak E' Joseph: 6.7 cm/sec PA V2 mean: 84.5 cm/sec E/E' med: 7.2 PA mean P.3 mmHg Lat Peak E' Joseph: 7.2 cm/sec PA pr(Accel): 39.2 mmHg E/E' lat: 6.7 E/e' average: 6.9 MV dec time: 0.34 sec SV(LVOT): 63.2 ml Reading Physician:05:11 PM
== END ==
PROVIDERS: Referring Provider Internal Medicine Cardiovascular Disease; Visit Provider Internal Medicine Cardiovascular Disease
DX: I50.22 Chronic systolic (congestive) heart failure (principal); I08.3 Combined rheumatic disorders of mitral, aortic and tricuspid valves; Z95.0 Presence of cardiac pacemaker
CPT/HCPCS: 93306